=== PATIENT | male | born 1970 | race Caucasian/White ===

== ENCOUNTER 2018-05-04 13:51 | Emergency (ER) | payer OTHER ==
[~2018-05-04] VITALS: Ht 185.4 cm; Wt 97.5 kg
[~2018-05-04 13:51] MED LIST: BENICAR40 MG PO; BENTYL 10 MG CA10 MG PO; BENTYL 20 MG TA20 M1 PO; CARISOPRODOL 3350 MG PO; CARVEDILOL12.5 MG PO; CLEOCIN HCL150 MG PO; CLEOCIN HCL300 MG PO; COREG PO; DIOVAN 80 MG TA80 M1 PO; DIOVAN PO; FERRO-TIME325 MG PO; FLOVENT HFA 1110 MCG; FUROSEMIDE 20 M20 M1 PO; GEODON40 MG PO; GEODON80 MG PO; GLUCOPHAGE500 MG PO; LASIX 20 MG TAB20 MG PO; LIDODERM 5%1 PATC1 TOP; MICARDIS40 MG PO; MINIPRESS5 MG PO; PAXIL10 MG PO; PAXIL40 MG PO; PRAZOSIN 1 MG CA1 M1; PRAZOSIN 1 MG CA1 M1 PO; SPIRONOLACTONE25 M1 PO; TRILEPTAL300 MG PO; TYLOX 5-500 CA1 EACH PO; VICODIN 5-5001 EACH; VIMPAT100 MG PO; WELLBUTRIN SR150 MG PO; XANAX 0.25 MG0.25 MG PO; XANAX 0.5 MG0.5 MG PO
[2018-05-04 13:59] VITALS: BP 123/74
[2018-05-04] MEDS ORDERED: NORCO 5-325 TA1 EACH PO (15:11)
== END 2018-05-04 15:19 | disposition home or self-care (01) ==
LOC: ER 13:51
DX: M25.511 Pain in right shoulder (principal); F32.9 Major depressive disorder, single episode, unspecified; G43.909 Migraine, unspecified, not intractable, without status migrainosus; I11.0 Hypertensive heart disease with heart failure; I50.30 Unspecified diastolic (congestive) heart failure; Z96.611 Presence of right artificial shoulder joint; Z88.6 Allergy status to analgesic agent; Z88.8 Allergy status to other drugs, medicaments and biological substances; Z88.1 Allergy status to other antibiotic agents; Z91.018 Allergy to other foods

== ENCOUNTER 2019-05-02 20:52 | Emergency (ER) | payer OTHER ==
[~2019-05-02] VITALS: Ht 185.4 cm; Wt 89.4 kg
[~2019-05-02 20:52] MED LIST changes: +NORCO 5-325 TA1 EACH PO
[2019-05-02] MEDS ORDERED: METFORMIN HCL500 MG PO (21:14)
[2019-05-02 21:24] VITALS: BP 145/79
--- NOTE | 2019-05-03 10:28 | EKG ---
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
== END 2019-05-02 21:15 | disposition left against medical advice (07) ==
LOC: ER 20:52
DX: R07.9 Chest pain, unspecified (principal); I11.0 Hypertensive heart disease with heart failure; I50.9 Heart failure, unspecified; E11.9 Type 2 diabetes mellitus without complications; G43.909 Migraine, unspecified, not intractable, without status migrainosus; Z95.5 Presence of coronary angioplasty implant and graft; Z95.0 Presence of cardiac pacemaker; Z91.018 Allergy to other foods; Z88.1 Allergy status to other antibiotic agents; Z88.6 Allergy status to analgesic agent; Z88.8 Allergy status to other drugs, medicaments and biological substances

== ENCOUNTER 2019-11-03 17:27 | Emergency (ER) | payer OTHER ==
[~2019-11-03] VITALS: Ht 185.4 cm; Wt 88.5 kg
[~2019-11-03 17:27] MED LIST changes: +METFORMIN HCL500 MG PO
[2019-11-03 18:01] LABS: ABSOLUTE NEUTROPHILS 3.7 thou/uL (1.4-8.2); BASOPHILS 1.4 % (0.0-2.0); HEMATOCRIT 43.4 % (42.0-52.0); HEMOGLOBIN 15.2 gm/dL (14.0-18.0); LYMPHOCYTES 34.8 % (24.0-44.0); MCHC 35.1 g/dL (28.0-37.0); MCV 91.2 fL (80.0-100.0); MONOCYTES 8.4 % (1.0-8.0); PLATELET COUNT 265 thou/uL (150-400); POLYS 55.4 % (36.0-66.0); RBC 4.76 mil/uL (4.50-6.00); RDW 13.8 % (10.5-14.5); WBC 6.7 thou/uL (4.0-11.0)
[2019-11-03 18:10] LABS: ANION GAP 11 mmol/L (7-16); BUN 7 mg/dL (7-18); CALCIUM 9.1 mg/dL (8.5-10.1); CHLORIDE 101 mmol/L (98-107); CO2 27 mmol/L (21-32); GLUCOSE 90 mg/dL (74-106); POTASSIUM 3.7 mmol/L (3.5-5.1); SODIUM 139 mmol/L (136-145)
[2019-11-03 18:20] LABS: ALBUMIN 4.5 g/dL (3.4-5.0); SGOT 17 U/L (15-37); SGPT 19 U/L (30-65); TOTAL BILIRUBIN 0.3 mg/dL (0.2-1.0); TOTAL PROTEIN 8.1 g/dL (6.4-8.2); TROPONIN-I <0.06 ng/mL (<0.06)
[2019-11-03 18:35] VITALS: BP 133/93
--- NOTE | 2019-11-04 08:00 | EKG ---
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 : 1970 Requested By: Marleny Leary Order Number: [id number] MD: Gm Mtz Measurements Intervals [place] Rate: 83 P: 7 SD: 159 QRS: 11 QRSD: 110 T: -12 QT: 381 QTc: 448 Interpretive Statements Sinus rhythm Consider right atrial enlargement Incomplete right bundle branch block Borderline T abnormalities Compared to ECG 05/02/2019 21:01:49 No significant change was found Electronically Signed On 11-04-2019 8:00:12 CDT by Gm Mtz [email or web address] <ELECTRONICALLY SIGNED> By: Gm Mtz MD, [facility] 11/04/19 0800 1747 174 Gm Mtz MD, [facility] /EPI
== END 2019-11-03 18:35 | disposition home or self-care (01) ==
LOC: ER 17:27
PROVIDERS: Emergency Medicine
DX: R42 Dizziness and giddiness (principal); I11.0 Hypertensive heart disease with heart failure; I50.9 Heart failure, unspecified; E11.9 Type 2 diabetes mellitus without complications; G43.909 Migraine, unspecified, not intractable, without status migrainosus; Z79.899 Other long term (current) drug therapy; Z88.6 Allergy status to analgesic agent; Z88.8 Allergy status to other drugs, medicaments and biological substances; Z91.048 Other nonmedicinal substance allergy status

== ENCOUNTER → 2021-04-18 | Outpatient (CLI) | payer OTHER | LOC: SJCVCIMAG 12:37 → SJCVC 12:37 | PROVIDERS: ATTEND Internal Medicine Cardiovascular Disease | DX: R94.31 Abnormal electrocardiogram [ECG] [EKG] (principal); I34.0 Nonrheumatic mitral (valve) insufficiency; I42.8 Other cardiomyopathies; I10 Essential (primary) hypertension; E78.5 Hyperlipidemia, unspecified; M19.90 Unspecified osteoarthritis, unspecified site; I25.10 Atherosclerotic heart disease of native coronary artery without angina pectoris; J44.9 Chronic obstructive pulmonary disease, unspecified; I42.9 Cardiomyopathy, unspecified; F32.9 Major depressive disorder, single episode, unspecified; Z95.810 Presence of automatic (implantable) cardiac defibrillator; Z79.899 Other long term (current) drug therapy; Z88.6 Allergy status to analgesic agent; Z88.8 Allergy status to other drugs, medicaments and biological substances ==